=== PATIENT | female | born 1960 | race Caucasian/White ===

== ENCOUNTER 2018-02-19 14:15 | Emergency (ER) | payer OTHER ==
[~2018-02-19] VITALS: Ht 147.3 cm; Wt 50.2 kg
[2018-02-19] MEDS ORDERED: LISINOPRIL10 MG PO (17:08)
[2018-02-19 17:20] VITALS: BP 191/111
== END 2018-02-19 17:20 | disposition home or self-care (01) ==
LOC: EME 14:15 → RME 14:15
DX: R04.0 Epistaxis (principal); I10 Essential (primary) hypertension; F17.200 Nicotine dependence, unspecified, uncomplicated
CPT/HCPCS: 99281; 99284